=== PATIENT | male | born 1945 | race Caucasian/White ===

== ENCOUNTER 2019-03-21 15:06 | Emergency (ER) | payer MEDICARE ==
[2019-03-21 16:03] VITALS: BP 137/80; PULSE 57; RESP 16; TEMP 98
--- NOTE | 2019-03-21 16:26 | XR ---
Fifth digit right hand HISTORY: Crush injury 3 views of the fifth digit of the right hand The lateral view shows a flexion deformity the distal interphalangeal joint. There is no evident frac ture or dislocation. Bone mineralization and joint spaces are maintained. IMPRESSION: Correlate for extensor tendon injury.
--- NOTE | 2019-03-21 16:30 | ED ---
Upper Extremity HPI - General Chief Complaint: Extremity Injury, Upper Stated Complaint: Hand/finger injury Time Seen by Provider: 03/21/19 15:56 Source: patient Mode of arrival: ambulatory Limitations: no limitations - History of Present Illness Initial Comments: 74 yo male presenting to the right pinky pain patient states he had his hand crunch between 2 boxes and he pulled it out he states he is now unable to extend at the distal part of his right small digit. Patient denies numbness tingling or loss sensation, coolness of the extremity remaining review of system negative patient denies any other areas of injury denies any pain at the base of the hand. remaining ROS (-). No abrasion lacerations. Patient appears well no acute distress on arrival. Review of Systems ROS Statement: Those systems with pertinent positive or pertinent negative responses have been documented in the HPI. ROS Other: All systems not noted in ROS Statement are negative. Past Medical History Past Medical History: No Reported History History of Any Multi-Drug Resistant Organisms: None Reported Past Surgical History: Prostate Surgery Additional Past Surgical History / Comment(s): TURP Past Psychological History: No Psychological Hx Reported Smoking Status: Former smoker Past Alcohol Use History: Occasional Past Drug Use History: None Reported General Exam - General Exam Comments Initial Comments: General: The patient is awake and alert, in no distress, and does not appear acutely ill. Eye: Pupils are equal, round and reactive to light, extra-ocular movements are intact. No nystagmus. There is normal conjunctiva bilaterally. No signs of icterus. Cardiovascular: There is a regular rate and rhythm. No murmur, rub or gallop is appreciated. Respiratory: Lungs are clear to auscultation, respirations are non-labored, breath sounds are equal. No wheezes, stridor, rales, or rhonchi. Gastrointestinal: [Soft, non-distended, non-tender abdomen without masses or organomegaly noted. There is no rebound or guarding present. No CVA tenderness. Bowel sounds are unremarkable.] Musculoskeletal: Forced flexed position of DIP joint of 5th digit of right hand, cannot extend. Normal ROM and strenght at the PIP and MCP joitns. No other abnormalities of digits noted. Sensation intact proximal and distal to injury site. Radial pulses equal bilaterally 2+. Capillary refill <3 seconds. No scaphoid tenderness. Neurological: A&O x 3. CN II-XII intact grossly, There are no obvious motor or sensory deficits. Coordination appears grossly intact. Speech is normal. Skin: Skin is warm and dry and no rashes or lesions are noted. Psychiatric: Cooperative, appropriate mood & affect, normal judgment. Limitations: no limitations Course Vital Signs 03/21/19 03/21/19 16:00 16:59 Temperature 98 F 98 F Pulse Rate 57 L 57 L Respiratory 16 16 Rate Blood Pressure 137/80 137/80 O2 Sat by Pulse 98 98 Oximetry Procedures - Orthopedic Splinting/Casting Injury #1 Side: right Upper Extremity Injury Location: finger Upper Extremity Immobilizer: finger (other) (splint distal to PIP joint with metal splint, in slight hyper extension) Medical Decision Making - Medical Decision Making 74yo male presents today for chief complaint of right fifth digit pain evidence of extensor tendon injury on physical examination. N/V intact otherwise. No abrasions lacerations. No fractures or dislocations on XR. Patient was splinted in slight hyper extension distal to the PIP joint with ROM at the PIP joint. Patient will be discharge with orthopedic f/u. Patient agreeable to this care plan and discharge at this time. discussed case wtih Dr. Marie. Disposition Clinical Impression: Injury of extensor tendon of right hand, Mallet finger, Crushing injury of right little finger Disposition: HOME SELF-CARE Condition: Good Instructions (If sedation given, give patient instructions): Tendon Rupture (ED) Additional Instructions: Please use medication as discussed. Please follow-up with family doctor in the next 2 days, orthopedic in the next 2-3 days. Keep splint in place as discussed. Please return to emergency room if the symptoms increase or worsen or for any other concerns. Is patient prescribed a controlled substance at d/c from ED?: No Referrals: Nonstaff,Physician [Primary Care Provider] - 1-2 days [place] Pham DO [Medical Doctor] - 1-2 days Time of Disposition: 16:42
== END 2019-03-21 17:00 | disposition home or self-care (01) ==
LOC: EC 15:06
DX: S66.396A Other injury of extensor muscle, fascia and tendon of right little finger at wrist and hand level, initial encounter (principal); M20.011 Mallet finger of right finger(s); Z87.891 Personal history of nicotine dependence; W23.0XXA Caught, crushed, jammed, or pinched between moving objects, initial encounter; Y93.89 Activity, other specified; Y92.414 Local residential or business street as the place of occurrence of the external cause
CPT/HCPCS: 99283

== ENCOUNTER 2019-11-16 08:36 | Emergency (ER) | payer MEDICARE ==
[2019-11-16 08:41] VITALS: BP 159/90; PULSE 55; RESP 16; TEMP 97.5
[2019-11-16] MEDS ORDERED: DIPH,PERTUS(ACELL)TETVAC-LF 0.5 ML VIAL IM ONE (08:46)
--- NOTE | 2019-11-16 08:50 | ED ---
General Adult HPI - General Chief complaint: Extremity Injury, Lower Stated complaint: Leg injury Time Seen by Provider: 11/16/19 08:40 Source: patient, RN notes reviewed, old records reviewed Mode of arrival: ambulatory Limitations: no limitations - History of Present Illness Initial comments: This is a 74-year-old male who presents emergency department stating that about 2 weeks ago he branch punctured his lower right leg. Patient states at that time he pulled the branch out and it bled significantly. Patient states after that is been keeping Neosporin on it but the redness around the site and the warmth and not gone away so he decided to come in to get looked at. Patient denies any spreading of the redness. Patient states his redness has not improved. Patient denies any fever or chills. Patient denies any calf tenderness. Patient denies any swelling to the leg. Patient denies any other problem or injury at this time. Patient does not have a tetanus shot up-to-date - Related Data Home Medications Medication Instructions Recorded Confirmed Bisoprolol-Hctz 5-6.25 mg [Ziac 2 tab PO DAILY 11/16/19 11/16/19 5-6.25 MG] Clindamycin Phosphate [Cleocin T] 1 applic TOPICAL BID PRN 11/16/19 11/16/19 Desonide 0.05% Lotion 1 applic TOPICAL BID PRN 11/16/19 Previous Rx's Medication Instructions Recorded Ciprofloxacin HCl [Cipro] 500 mg PO Q12HR #20 tablet 11/16/19 Allergies Allergy/AdvReac Type Severity Reaction Status Date / Time No Known Allergies Allergy Verified 11/16/19 09:18 Review of Systems ROS Statement: Those systems with pertinent positive or pertinent negative responses have been documented in the HPI. ROS Other: All systems not noted in ROS Statement are negative. Past Medical History Past Medical History: No Reported History History of Any Multi-Drug Resistant Organisms: None Reported Past Surgical History: Prostate Surgery Additional Past Surgical History / Comment(s): TURP Past Psychological History: No Psychological Hx Reported Smoking Status: Never smoker Past Alcohol Use History: Occasional Past Drug Use History: None Reported General Exam - General Exam Comments Initial Comments: GENERAL Patient is well-developed and well-nourished. Patient is in mild distress. EYES Patient's pupils are equal and round. Extraocular motion is intact SKIN Unremarkable NEURO The patient is alert and oriented 3 PYSCH Patient has normal interpersonal interactions. MUSCULOSKELETAL Patient has a very small puncture wound to the anterior aspect of the distal right leg the area around it is mildly erythematous and warm. Patient has no edema or swelling to the leg patient has no calf tenderness. Limitations: no limitations Course Vital Signs 11/16/19 08:38 Temperature 97.5 F L Pulse Rate 55 L Respiratory 16 Rate Blood Pressure 159/90 O2 Sat by Pulse 97 Oximetry Medical Decision Making - Medical Decision Making X-ray shows no acute abnormality. Patient received a tetanus shot in the emergency department. Disposition Clinical Impression: Cellulitis, leg Disposition: HOME SELF-CARE Condition: Good Instructions (If sedation given, give patient instructions): Cellulitis (ED) Prescriptions: Ciprofloxacin HCl [Cipro] 500 mg PO Q12HR #20 tablet Is patient prescribed a controlled substance at d/c from ED?: No Referrals: Nonstaff,Physician [Primary Care Provider] - 1-2 days Time of Disposition: 09:26
--- NOTE | 2019-11-16 09:14 | XR ---
EXAMINATION TYPE: XR tibia fibula RT DATE OF EXAM: 11/16/2019 COMPARISON: NONE HISTORY: Pain post puncture wound TECHNIQUE: Two views are submitted. FINDINGS: The osseous structures are intact. The joint spaces are preserved. IMPRESSION: 1. No acute osseous abnormality.
== END 2019-11-16 09:28 | disposition home or self-care (01) ==
LOC: EC 08:36
DX: L03.115 Cellulitis of right lower limb (principal); S81.831A Puncture wound without foreign body, right lower leg, initial encounter; Z23 Encounter for immunization
CPT/HCPCS: 90471; 90715; 99284

== ENCOUNTER → 2021-05-14 | Outpatient (CLI) | payer MEDICARE ==
--- NOTE | 2021-05-15 09:01 | US ---
EXAMINATION TYPE: US carotid duplex BILAT DATE OF EXAM: 05/14/2021 COMPARISON: NONE CLINICAL HISTORY: G43.B0 occular migraine. EXAM MEASUREMENTS: RIGHT: Peak Systolic Velocity (PSV) cm/sec ----- Right CCA: 60.1 ----- Right ICA: 60.8 ----- Right ECA: 90.9 ICA/CCA ratio: 1.0 RIGHT: End Diastole cm/sec ----- Right CCA: 14.7 ----- Right ICA: 20.5 ----- Right ECA: 15.6 LEFT: Peak Systolic Velocity (PSV) cm/sec ----- Left CCA: 65.9 ----- Left ICA: 65.9 ----- Left ECA: 65.6 ICA/CCA ratio: 1.0 LEFT: End Diastole cm/sec ----- Left CCA: 17.4 ----- Left ICA: 20.3 ----- Left ECA: 11.1 VERTEBRALS (direction of flow): Right Vertebral: Antegrade Left Vertebral: Antegrade Rhythm: Normal Mild atherosclerotic changes with no significant velocity increases. IMPRESSION: No significant flow-limiting stenosis. Criteria for Assigning % of Stenosis / Diameter reduction (Estimation based on the indirect measurements of the internal carotid artery velocities (ICA PSV). 1. Normal (no stenosis)=ICA PSV < 125 cm/s: ratio < 2.0: ICA EDV<40 cm/s. 2. Less than 50% stenosis=ICA PSV < 125 cm/s: ratio < 2.0: ICA EDV<40 cm/s. 3. 50 to 69% stenosis=ICA PSV of 125 to 230 cm/s: ration 2.0 ? 4.0: ICA EDV 40-100 cm/s. 4. Greater than 70% stenosis to near occlusion= ICA PSV > 230 cm/s: ratio > 4.0: ICA EDV > 100 cm/s. 5. Near occlusion= ICA PSV velocities may be low or undetectable: variable ratio and ICA EDV. 6. Total occlusion=unable to detect flow.
== END | disposition home or self-care (01) ==
LOC: RADUSWWP 16:22
PROVIDERS: ATTEND Ophthalmology
DX: G43.B0 Ophthalmoplegic migraine, not intractable (principal)
CPT/HCPCS: 93880

== ENCOUNTER 2021-09-15 22:01 | Emergency (ER) | payer MEDICARE ==
[2021-09-15 22:10] VITALS: RESP 18
[2021-09-15] MEDS ORDERED: ACETAMINOPHEN TAB 500 MG TAB PO STA (23:40)
[2021-09-15] MEDS ORDERED: SODIUM CHLORIDE 0.9% 1,000 ML IV STA (23:40)
[2021-09-15] MEDS ORDERED: ONDANSETRON 4 MG/2 ML VIAL IVP STA (23:41)
--- NOTE | 2021-09-16 00:09 | XR ---
EXAMINATION TYPE: XR chest 2V DATE OF EXAM: 09/15/2021 COMPARISON: NONE HISTORY: TECHNIQUE: 2 views FINDINGS: Heart and mediastinum are normal. Lungs are clear of infiltrate. No heart failure. There ar e no hilar masses. Costophrenic angles are clear. Bony thorax is intact. IMPRESSION: No active cardiopulmonary disease. Normal heart
[2021-09-16] MEDS ORDERED: BEBTELOVIMAB (EUA) 175 MG/2 ML VIAL IV ONE (00:15)
--- NOTE | 2021-09-16 00:23 | ED ---
General Adult HPI - General Chief complaint: ENT Stated complaint: Fever,sore throat-wants covid screening Time Seen by Provider: 09/15/21 22:55 Source: patient, RN notes reviewed Mode of arrival: ambulatory Limitations: no limitations - History of Present Illness Initial comments: 76-year-old male presents to the emergency department requesting a Covid test. Patient states he began feeling poorly yesterday including mild headache and body aches. States today he has had a sore throat, then developed a fever this evening. Complains of mild nausea and loss of appetite. Reports Covid vaccination and booster. Denies dizziness, chest pain, shortness of breath or difficulty breathing, abdominal pain, vomiting, and diarrhea. - Related Data Home Medications Medication Instructions Recorded Confirmed Bisoprolol-Hctz 5-6.25 mg [Ziac 2 tab PO DAILY 11/16/19 11/16/19 5-6.25 MG] Clindamycin Phosphate [Cleocin T] 1 applic TOPICAL BID PRN 11/16/19 11/16/19 Desonide 0.05% Lotion 1 applic TOPICAL BID PRN 11/16/19 Previous Rx's Medication Instructions Recorded Ciprofloxacin HCl [Cipro] 500 mg PO Q12HR #20 tablet 11/16/19 Albuterol Sulfate [Proair Hfa] 1 - 2 puff INHALATION Q4HR PRN 09/16/21 #8.5 gm dexAMETHasone 6 mg PO DAILY #10 tablet 09/16/21 Allergies Allergy/AdvReac Type Severity Reaction Status Date / Time No Known Allergies Allergy Verified 11/16/19 09:18 Review of Systems ROS Statement: Those systems with pertinent positive or pertinent negative responses have been documented in the HPI. ROS Other: All systems not noted in ROS Statement are negative. Past Medical History Past Medical History: No Reported History History of Any Multi-Drug Resistant Organisms: None Reported Past Surgical History: Prostate Surgery Additional Past Surgical History / Comment(s): TURP Past Psychological History: No Psychological Hx Reported Smoking Status: Never smoker Past Alcohol Use History: Occasional Past Drug Use History: None Reported General Exam Limitations: no limitations General appearance: alert, in no apparent distress (Well-developed, well- nourished male in no acute distress. Initial temperature 99.0, recheck 101.6, pulse 75, respirations 18, blood pressure 148/87, pulse ox 97% on room air.) ENT exam: Present: normal exam, normal oropharynx, mucous membranes moist, TM's normal bilaterally Neck exam: Present: normal inspection, full ROM. Absent: tenderness, meningismus, lymphadenopathy Respiratory exam: Present: normal lung sounds bilaterally. Absent: respiratory distress, wheezes, rales, rhonchi, stridor, chest wall tenderness Cardiovascular Exam: Present: regular rate, normal rhythm, normal heart sounds. Absent: systolic murmur, diastolic murmur, rubs, gallop, clicks GI/Abdominal exam: Present: soft, normal bowel sounds. Absent: distended, tenderness, guarding, rebound, rigid Neurological exam: Present: alert, oriented X3, normal gait Psychiatric exam: Present: normal affect, normal mood Skin exam: Present: warm, dry, intact, normal color. Absent: rash Course Vital Signs 09/15/21 09/16/21 09/16/21 22:07 00:48 02:07 Temperature 99.0 F 99.6 F Pulse Rate 75 78 74 Respiratory 18 18 18 Rate Blood Pressure 148/87 108/66 108/69 O2 Sat by Pulse 97 95 94 L Oximetry - Reevaluation(s) Reevaluation #1: 09/16/21 00:00 Discussed risks and benefits associated with monoclonal antibody infusion. Patient requests this treatment. 09/16/21 01:15 Upon reassessment, patient tolerated infusion well with no adverse side effects. His temperature is improved with Tylenol and he is feeling significantly improved after fluids. No shortness of breath or difficulty breathing at this time. He is instructed on isolation precautions. Return parameters discussed in detail. Medical Decision Making - Medical Decision Making This is a fully vaccinated 76-year-old male who presents to the emergency department requesting a Covid workup. Patient has been feeling poorly the past 24 hours including fever, headache, sore throat, muscle aches. Upon exam, patient is nontoxic in appearance. Physical exam findings are unremarkable. His Covid test did come back positive and he is requesting monoclonal antibody infusion, which was well-tolerated with no adverse side effects. Given IV fluids, Tylenol, and Zofran with marked improvement. Chest Xray negative. Isolation precautions reviewed with patient and spouse. Encouraged to supplement with Vitamin C, D, and Zinc. Instructed to follow up with PCP via telephone or video visit for recheck. Return parameters discussed in detail. Patient verbalizes understanding and agrees with this plan. Attending:Susana. - Lab Data Lab Results 09/15/21 Range/Units 22:08 Coronavirus (PCR) Detected A (Not Detectd) - Radiology Data Radiology results: report reviewed, image reviewed Two-view chest x-ray was obtained. Report was reviewed in its entirety. Impression per Dr. Thakur is no active cardiopulmonary disease. Normal heart. Disposition Clinical Impression: COVID-19 Disposition: HOME SELF-CARE Condition: Stable Instructions (If sedation given, give patient instructions): Coronavirus Disease 2019 (COVID-19) Additional Instructions: Use albuterol inhaler if needed for shortness of breath or wheezing. Take steroid daily. Remain at home for the next 5 days. After that wear a mask when you are out in public for the subsequent 5 days. Treat fever with Tylenol or Motrin. Drink plenty of water. Consider electrolyte solution such as Gatorade or Powerade. Call your PCP to schedule a follow-up appointment for a recheck this week. Return to the emergency department with any new, worsening, or concerning symptoms. Prescriptions: dexAMETHasone 6 mg PO DAILY #10 tablet Albuterol Sulfate [Proair Hfa] 1 - 2 puff INHALATION Q4HR PRN #8.5 gm PRN Reason: difficulty in breathing Is patient prescribed a controlled substance at d/c from ED?: No Referrals: Nonstaff,Physician [Primary Care Provider] - 1-2 days Time of Disposition: 01:57
[2021-09-16 00:48] VITALS: TEMP 99.6
[2021-09-16 02:09] VITALS: BP 108/69; PULSE 74
== END 2021-09-16 02:10 | disposition home or self-care (01) ==
LOC: EC 22:01
DX: U07.1 COVID-19 (principal)
CPT/HCPCS: 87635; 71046; 99284; 96374; J2405; Q0222

== ENCOUNTER → 2023-12-03 | Outpatient (CLI) | payer MEDICARE ==
[2023-12-03 15:10] LABS: BUN/Creat Ratio 19.33 Ratio (12.00-20.00); Calcium 8.7 mg/dL (8.7-10.3); Carbon Dioxide 29.4 mmol/L (21.6-31.8); Chloride 100 mmol/L (96-109); Glucose 115 mg/dL (70-110); Potassium 3.4 mmol/L (3.5-5.5); Sodium 140 mmol/L (135-145)
== END | disposition home or self-care (01) ==
LOC: LABWHC1 11:43
CPT/HCPCS: 36415; 80048

== ENCOUNTER → 2024-03-07 | Outpatient (CLI) | payer MEDICARE ==
[2024-03-07 17:05] LABS: HCT 42.3 % (39.0-53.0); HGB 13.2 gm/dL (13.0-17.5); Hypochromasia Moderate; MCH 26.5 pg (25.0-35.0); MCHC 31.1 g/dL (31.0-37.0); MCV 85.2 fL (80.0-100.0); Platelet Count 186 k/uL (150-450); RBC 4.97 m/uL (4.30-5.90); RDW 15.4 % (11.5-15.5); WBC 6.8 k/uL (3.8-10.6)
[2024-03-07 17:08] LABS: African American GFR (CKD) 45 (>60 ml/min/1.73 sqM); Anion Gap 5 mmol/L; Blood Urea Nitrogen 30 mg/dL (9-20); Calcium 9.5 mg/dL (8.4-10.2); Carbon Dioxide 34 mmol/L (22-30); Chloride 101 mmol/L (98-107); Glucose 104 mg/dL (74-99); INR 1.2 (<1.2); Non-African American GFR(CKD) 39 (>60 ml/min/1.73 sqM); Potassium 4.4 mmol/L (3.5-5.1); Sodium 140 mmol/L (137-145)
== END | disposition home or self-care (01) ==
LOC: LABWHC1 16:20
PROVIDERS: ATTEND Nurse Practitioner Acute Care
DX: I48.19 Other persistent atrial fibrillation (principal)
CPT/HCPCS: 36415; 80048; 85027; 85610

== ENCOUNTER → 2024-04-25 | Outpatient (CLI) | payer MEDICARE ==
[2024-04-25 16:45] LABS: BUN/Creat Ratio 19.06 Ratio (12.00-20.00); Blood Urea Nitrogen 32.4 mg/dL (9.0-27.0); Calcium 9.4 mg/dL (8.7-10.3); Chloride 101 mmol/L (96-109); Glucose 93 mg/dL (70-110); Potassium 4.7 mmol/L (3.5-5.5); Sodium 141 mmol/L (135-145)
== END | disposition home or self-care (01) ==
LOC: LABWHC1 11:05
DX: I48.0 Paroxysmal atrial fibrillation (principal)
CPT/HCPCS: 36415; 80048

== ENCOUNTER → 2024-05-24 | Outpatient (CLI) | payer MEDICARE ==
[2024-05-24 14:50] LABS: Calcium 9.6 mg/dL (8.7-10.3); Carbon Dioxide 27.2 mmol/L (21.6-31.8); Chloride 101 mmol/L (96-109); Glucose 93 mg/dL (70-110); Potassium 4.7 mmol/L (3.5-5.5); Sodium 140 mmol/L (135-145)
== END | disposition home or self-care (01) ==
LOC: LABWHC1 11:55
PROVIDERS: ATTEND Internal Medicine Cardiovascular Disease
DX: I50.9 Heart failure, unspecified (principal)
CPT/HCPCS: 36415; 80048